=== PATIENT | female | born 1990 | race Caucasian/White ===

== ENCOUNTER 2018-09-18 17:10 | Day surgery (SDC) | payer BC, OTHER ==
[~2018-09-18] VITALS: Ht 154.9 cm; Wt 63.3 kg
[2018-09-18] MEDS: LR 1,000 ML IV SCH (01:00)
[2018-09-18 17:47] LABS: BASO # 0.1 10^3/uL (0.0-0.2); BASO % 0.3 % (0.0-1.0); EOS # 0.2 10^3/uL (0.0-0.50); HEMATOCRIT 45.8 % (36.0-47.0); HEMOGLOBIN 14.9 g/dl (12.0-15.5); LYMPH % 10.4 % (24.0-44.0); MEAN CORPUSCULAR HEMOGLOBIN 29.8 pg (27.0-33.0); MEAN CORPUSCULAR HGB CONC 32.5 g/dl (32.0-36.5); MEAN CORPUSCULAR VOLUME 91.6 fl (80.0-96.0); MONO # 1.7 10^3/uL (0.0-0.8); NEUTROPHILS # 15.2 10^3/uL (1.8-7.7); NEUTROPHILS % 78.8 % (36.0-66.0); PLATELET COUNT, AUTOMATED 242 10^3/uL (150-450); WHITE BLOOD COUNT 19.3 10^3/uL (4.0-10.0)
[2018-09-18] MEDS ORDERED: KETOROLAC 30 MG/ML VIAL (J1885) IV ONE (18:00)
[2018-09-18] MEDS ORDERED: ONDANSETRON 4MG/2ML VIAL (J2405) IV ONE (18:00)
[2018-09-18 18:15] LABS: ALT/SGPT 12 U/L (12-78); BILIRUBIN,DIRECT 0.3 MG/DL (0.0-0.2); BLOOD UREA NITROGEN 7 MG/DL (7-18); CALCIUM LEVEL 9.3 MG/DL (8.5-10.1); CARBON DIOXIDE LEVEL 29 MEQ/L (21-32); CHLORIDE LEVEL 104 MEQ/L (98-107); CREATININE FOR GFR 0.78 MG/DL (0.55-1.30); GLOMERULAR FILTRATION RATE > 60.0 (>60); GLUCOSE, FASTING 98 MG/DL (70-100); LIPASE 102 U/L (73-393); POTASSIUM SERUM 3.6 MEQ/L (3.5-5.1); SODIUM LEVEL 138 MEQ/L (136-145)
[2018-09-18 18:23] LABS: HCG, SERUM QUALITATIVE NEGATIVE (NEGATIVE)
[2018-09-18] MEDS ORDERED: ISOVUE-370 76% 100ML VIAL (Q9967) As Ordered ONE (18:26)
--- NOTE | 2018-09-18 19:28 | REPVR ---
EXAM: CT Abdomen and Pelvis With Contrast EXAM DATE/TIME: 09/18/2018 6:05 PM CLINICAL HISTORY: 28 years old, female; Abdominal pain; Other: Lower; Additional info: Lower abd pain TECHNIQUE: Imaging protocol: Axial computed tomography images of the abdomen and pelvis with intravenous contrast. Coronal and sagittal reformatted images were created and reviewed. Radiation optimization: All CT scans at this facility use at least one of these dose optimization techniques: automated exposure control; mA and/or kV adjustment per patient size (includes targeted exams where dose is matched to clinical indication); or iterative reconstruction. Contrast material: ISOVUE 370; Contrast volume: 100 ml; Contrast route: IV; COMPARISON: No relevant prior studies available. FINDINGS: Lungs: Clear lung bases. Heart: The heart is normal in size. ABDOMEN: Liver: Normal appearing liver. Gallbladder and bile ducts: The gallbladder is partially contracted. Pancreas: Normal pancreas. Spleen: Normal spleen. Adrenals: Normal adrenal glands. Kidneys and ureters: Normal kidneys. Stomach and bowel: The cecum is in the right pelvis. There is thickening of the margin of the cecum consistent with inflammation. Small amount of secretions through small bowel. Appendix: At the origin of the appendix there is a 1 CM calcified appendicolith. The appendix is severely enlarged measuring 1.6 CM in thickness. There is a small calcified appendicolith near the distal end of the appendix. The appearance is consistent with appendicitis. The appendix extends inferiorly to the mid lower pelvis. There is a small amount of fluid and inflammation in the right paracolic space extending to the region of the thickened cecum and appendix. The inflammation is most likely at the origin of the appendix. There are several moderate sized lymph nodes medial to the cecum with enhancement consistent with adenitis. PELVIS: Bladder: Unremarkable as visualized. Reproductive: In normal uterus. There are multiple follicular cysts right and left ovary the largest 1.7 CM in the right. ABDOMEN and PELVIS: Intraperitoneal space: There is no evidence of pneumoperitoneum. There is a moderate amount of free fluid within the pelvis a loculation of free fluid right posterior gutter region. Bones/joints: There is mild scoliosis of the lumbar spine. Vasculature: There is opacification of the SMA. There is opacification of the aorta and the aorta appears normal in size. Other findings: There is ossification of the SMV. IMPRESSION: 1. The cecum is in the right pelvis with thickening of the wall consistent with prominent inflammation. 2. Also a small amount of fluid and inflammation in the right paracolic space to the inferior margin of the cecum. 3. 1 cm calcified appendicolith at the origin of the appendix. The appendix is severely thickened and extending to the mid pelvis. Inflammation at the junction of the cecum with the appendix and all consistent with changes of appendicitis. 4. Approximate 8 lymph nodes 1.5 CM each with enhancement consistent with adenitis near the cecum. 5. Prominent amount of fluid in the pelvis possibly from appendicitis. Leaking of an ovarian cyst would be another consideration. Electronically signed by: Torsten Stout On 09/18/2018 19:27:44 PM
[2018-09-18] MEDS ORDERED: LIDOCAINE 2% INJ 100 MG/5 ML SDV (FOR ANES.) As Ordered ONE (20:00)
[2018-09-18] MEDS ORDERED: SUCCINYLCHOLINE 100 MG/5 ML SYRINGE (J0330) As Ordered ONE (20:00)
[2018-09-18] MEDS ORDERED: ROCURONIUM BROMIDE 50 MG/5 ML VIAL As Ordered ONE (20:00)
[2018-09-18] MEDS ORDERED: MIDAZOLAM INJ 2 MG/2 ML VIAL (J2250) As Ordered ONE (20:00)
[2018-09-18] MEDS ORDERED: fentaNYL 100 MCG/2 ML INJECTION (J3010) As Ordered ONE ×2 (20:00→21:39)
[2018-09-18] MEDS ORDERED: PROPOFOL 200 MG/20 ML VIAL As Ordered ONE (20:00)
[2018-09-18] MEDS ORDERED: PIPERACILLIN/TAZOBACTAM SOD 3.375 GM in D5W MINI-BAG PLUS 50 ML IV ONE (20:00)
[2018-09-18] MEDS ORDERED: dexameTHASONE 4 MG/ML 1ML VIAL (J1100) As Ordered ONE (20:01)
[2018-09-18] MEDS ORDERED: ONDANSETRON 4MG/2ML VIAL (J2405) As Ordered ONE (20:04)
[2018-09-18] MEDS ORDERED: GLYCOPYRROLATE INJ 0.2 MG/ML 2 ML VIAL As Ordered ONE (20:05)
[2018-09-18] MEDS ORDERED: NEOSTIGMINE 10 MG/10 ML VIAL (J2710) As Ordered ONE (20:05)
[2018-09-18] MEDS ORDERED: ONDANSETRON 4MG/2ML VIAL (J2405) IV PRN ×2 (20:30→23:30)
[2018-09-18] MEDS ORDERED: BUPIVACAINE HCL 0.25% 30 ML VIAL As Ordered ONE (20:47)
[2018-09-18] MEDS ORDERED: ACETAMINOPHEN 1000MG 100ML IV BTL (OFIRMEV) (J0131 PER 10MG) As Ordered ONE (21:42)
[2018-09-18] MEDS ORDERED: MORPHINE 10 MG/ML 1ML VIAL (J2270) IV PRN (23:30)
[2018-09-18] MEDS ORDERED: LR 1,000 ML IV SCH (23:30)
[2018-09-18] MEDS ORDERED: fentaNYL 100 MCG/2 ML INJECTION (J3010) IV PRN (23:30)
[2018-09-18] MEDS ORDERED: PERCOCET 5MG/325MG TAB PO PRN (23:30)
[2018-09-18] MEDS ORDERED: METOCLOPRAMIDE INJ 10MG/2ML VIAL (J2765) IV PRN (23:30)
[2018-09-18] MEDS ORDERED: ACETAMINOPHEN TAB 650MG DOSE (2X325MG) PO PRN (23:45)
[2018-09-19] VITALS (11 sets, daily range): BP systolic 96–120; BP diastolic 52–71
[2018-09-19] MEDS ORDERED: KETOROLAC 30 MG/ML VIAL (J1885) IV PRN
[2018-09-19] MEDS: LR 1,000 ML IV SCH (01:00)
[2018-09-19] MEDS: PIPERACILLIN/TAZOBACTAM SOD 3.375 GM in D5W MINI-BAG PLUS 50 ML IV SCH ×2 (01:40→08:03)
[2018-09-19] MEDS: MORPHINE 4 MG/ML 1ML VIAL/SYRINGE (J2270) IV PRN ×3 (01:56→11:18)
[2018-09-19] MEDS: IBUPROFEN 600 MG TAB PO PRN ×3 (08:43→23:38)
[2018-09-19] MEDS: NORCO, ANEXSIA 5/325MG TABLET (HYDROcodone/ACETAMINOPHEN) PO PRN ×3 (10:03→23:38)
[2018-09-20] VITALS: BP 107/57
[2018-09-20 04:00] VITALS: BP 116/54
[2018-09-20 08:30] VITALS: BP 123/59
[2018-09-20] MEDS: NORCO, ANEXSIA 5/325MG TABLET (HYDROcodone/ACETAMINOPHEN) PO PRN (08:48)
[2018-09-20] MEDS ORDERED: HYDR-4571 PO (11:34)
--- NOTE | 2018-09-21 07:33 | RO ---
DATE OF PROCEDURE: 09/18/2018 PREOPERATIVE DIAGNOSIS: Acute appendicitis. POSTOPERATIVE DIAGNOSIS: Acute appendicitis. PROCEDURE PERFORMED: Laparoscopic appendectomy with partial resection of cecum. SURGEON: Ken Yung MD ADVISORY APPLICATION DEVELOPER: ANESTHESIA: General. INDICATIONS FOR PROCEDURE: The patient is a 28-year-old woman who presented to the emergency department with a history of abdominal pain becoming localized in the right lower quadrant. Examination showed marked tenderness in the right lower quadrant and suprapubic area. A CT scan was consistent with acute appendicitis, but also showed some thickening of the cecal wall around the base of the appendix. She is now for a laparoscopic appendectomy. OPERATIVE PROCEDURE: The patient was brought to the operating room and placed on the table in a supine position. She was placed under general endotracheal anesthesia. The patient's abdomen was prepped and draped in a sterile fashion. 0.25% Marcaine was infiltrated at each of her trocar sites as needed. A short supraumbilical midline incision was made and deepened through the subcutaneous tissues to the fascia. The fascia was opened along the midline and the peritoneum was opened bluntly. The Armando cannula was inserted and the patient's abdomen was insufflated with carbon dioxide gas. She was tilted from a reverse Trendelenburg to a Trendelenburg position and rolled slightly to the left. A 5 mm trocar was placed in the left lower quadrant and a second 5 mm trocar was placed low in the midline. Graspers were inserted. The patient's liver appeared normal. There was a small amount of serous fluid noted in the pelvis. The cecum was identified. The terminal ileum was displaced superiorly and the inflamed appendix was identified extending inferiorly. This was grasped and elevated. A few filmy attachments around the base of the appendix were divided. There were several fronds of fatty tissue about the appendix and along the terminal ileum that were quite inflamed. Inspection revealed that there was marked inflammation, particularly at the base of the appendix and also involving the cecum around the base of the appendix. The attachments of the appendix were divided using primarily cautery dissection. Dissection proceeded to free the appendix completely down to the base. I placed an [place] 60 mm stapler with a green load across the junction of the appendix with the cecum. In this manner a portion of the inflamed cecum was also to be resected. The stapler was closed and fired. On inspecting the staple line there was a portion of the staple line, about a centimeter in length, that appeared to be questionable and as this was gently probed and inspected the demetrius appeared to be misshapen and the closure was an incomplete. There was some brownish debris noted right along this portion of the staple line. On inspecting the CT scan it appeared that her appendicolith had been located right in the orifice of the appendix and I suspect that the staple line crossed this. Some additional time was spent freeing more of the lateral aspect of the cecum to allow resection of an additional portion of the cecum to remove this inflamed area and the area of questionable staple closure. Once the dissection had been completed, another two loads of the [place] stapler were used to excise the inflamed portion of the wall of the cecum with the old staple line. This tissue and the appendix were placed in an Endopouch. The right lower quadrant paracolic gutters were all irrigated with some warm saline and inspection showed no evidence of bleeding and the staple line showed good appearance. The patient was returned to a flat position. The abdomen was deflated and the trocars were removed. The appendix and the portions of the cecum were recovered through the Treviño site. The Treviño site fascia was closed with interrupted simple sutures of #2-0 Vicryl. Skin incisions were all closed with buried #5-0 Vicryl and Steri-Strips. Light dressings were applied. The patient tolerated the procedure well without apparent complication. She was awakened in the operating room, extubated and moved to the recovery room in stable condition.
--- NOTE | 2018-09-21 07:37 | IPN ---
DATE: 09/20/2018 HISTORY: The patient is now postop day 2 from a laparoscopic appendectomy for appendicitis. She has significantly improved over the past 24 hours. Yesterday she complained of severe pain and today she reports that this is much improved. She has been tolerating some food with no nausea or vomiting. She is voiding without difficulty. She has taken a couple of [place] tablets since yesterday for discomfort. Vital signs show that she has been afebrile over the past 24 hours with a pulse in the 60s to 80s and a good blood pressure. Intake and output shows that yesterday she had 3180 in with 1100 recorded out. She has an excellent urine output recorded today. PHYSICAL EXAMINATION: The patient is sitting up in her bed looking quite comfortable. She is alert and oriented. Skin is warm and dry. Heart exam shows a regular rhythm. The lungs are clear. The abdomen is flat with active bowel sounds. Her incisions all look clean and dry. IMPRESSION: The patient is doing very well now on postop day 2 from her appendectomy. PLAN: The patient will be discharged home today. She was advised that she can take a diet as tolerated. She can shower ad wendy. She was advised to try to avoid disturbing the Steri-Strips for the first week or so. We discussed her return to work and will plan on her returning to work on September 28. If there are problems with this deadline, she should contact my office. She was otherwise provided a note to the effect that she could return to work on the . She was advised regarding some signs to look for and to contact me for any adverse events. She was advised that she should avoid any strenuous physical activity or heavy lifting for two weeks. She should follow up in my office in approximately 10-14 days for a final check. She will be provided a prescription for [place] to take on an as-needed basis for more severe pain, but will use over the counter meds as needed for lesser pain. TRISTEN
== END 2018-09-20 12:20 | disposition home or self-care (01) ==
LOC: M ED 17:10 → M SDC 20:46 → M ED 20:58 → M PED 09-19 00:30 → M SDC 09-20 12:20
PROVIDERS: ATTEND Surgery
DX: K35.890 Other acute appendicitis without perforation or gangrene (principal); Z88.8 Allergy status to other drugs, medicaments and biological substances
CPT/HCPCS: 44238; 44970; 74177; 80048; 80076; 81001; 83690; 84703; 85025; 88302; 93041; 96361; 96365; 96366; 96375; 96376; 99284; J0131; J0330; J1100; J1885; J2250; J2270; J2405; J2543; J2710; J2765; J3010; Q9967

== ENCOUNTER → 2019-03-24 | Outpatient (REF) | payer OTHER ==
[~2019-03-24] MED LIST: HYDR-4571 PO
[2019-03-24 18:28] LABS: BASO # 0.1 10^3/uL (0.0-0.2); BASO % 0.4 % (0.0-1.0); EOS # 0.2 10^3/uL (0.0-0.5); EOS % 1.3 % (0.0-3.0); HEMATOCRIT 37.2 % (36.0-47.0); HEMOGLOBIN 12.3 g/dl (12.0-15.5); LYMPH # 2.6 10^3/uL (1.5-5.0); LYMPH % 19.2 % (24.0-44.0); MEAN CORPUSCULAR HEMOGLOBIN 29.9 pg (27.0-33.0); MEAN CORPUSCULAR HGB CONC 33.1 g/dl (32.0-36.5); MEAN CORPUSCULAR VOLUME 90.5 fl (80.0-96.0); MONO % 7.7 % (0.0-5.0); NEUTROPHILS # 9.5 10^3/uL (1.5-8.5); NEUTROPHILS % 70.9 % (36.0-66.0); PLATELET COUNT, AUTOMATED 231 10^3/uL (150-450); RED BLOOD COUNT 4.11 10^6/uL (4.00-5.40); WHITE BLOOD COUNT 13.3 10^3/uL (4.0-10.0)
[2019-03-24 20:29] LABS: CHLAMYDIA DNA AMPLIFICATION POSITIVE (NEGATIVE); GC DNA AMPLIFICATION NEGATIVE (NEGATIVE)
[2019-03-26 10:38] LABS: HIV 1&2 SCREEN CENTAUR NEGATIVE (NEGATIVE); RUBELLA IgG QUALITATIVE IMMUNE (IMMUNE)
== END ==
LOC: M LABDRAW1 16:52
PROVIDERS: ATTEND Advanced Practice Midwife
DX: Z34.81 Encounter for supervision of other normal pregnancy, first trimester (principal); Z3A.00 Weeks of gestation of pregnancy not specified

== ENCOUNTER → 2019-04-28 | Outpatient (REF) | payer OTHER | LOC: M LAB REF 12:54 | PROVIDERS: ATTEND Physician Assistant | DX: J20.9 Acute bronchitis, unspecified (principal) ==

== ENCOUNTER → 2019-05-17 | Outpatient (REF) | payer OTHER ==
[2019-05-18 16:00] LABS: CHLAMYDIA DNA AMPLIFICATION NEGATIVE (NEGATIVE); GC DNA AMPLIFICATION NEGATIVE (NEGATIVE)
== END ==
LOC: M SFHCWAGY 11:39
PROVIDERS: ATTEND Obstetrics & Gynecology
DX: Z34.80 Encounter for supervision of other normal pregnancy, unspecified trimester (principal)

== ENCOUNTER → 2019-05-24 | Outpatient (CLI) | payer OTHER ==
--- NOTE | 2019-05-24 19:24 | REP ---
Clinical: Anatomical evaluation. Comparison: None . Findings: Examination demonstrates a single live intrauterine in transverse (head to maternal left) presentation. motion is identified by technologist. Placenta is noted right lateral and grade zero without evidence for placenta previa or abruption. Amniotic fluid volume is normal. Cervix measures 3.5 cm in length and appears closed. No evidence for nuchal cord. Gestational age by LMP 19 weeks 0 days with KB 10/18/2019 . Gestational age by current measurements 19 weeks 0 days with KB 10/18/2019 . FHR equals 169 beats per minute. BPD 4.4 cm 19 weeks 3 days HC 15.3 cm 18 weeks 3 days AC 13.4 cm 18 weeks 6 days FL 2.5 cm 17 weeks 4 days HL 2.5 cm 17 weeks 5 days HC/AC ratio 1.14 Estimated weight 233 grams ( 24th percentile). Anatomical assessment demonstrates normal structures including cranium, choroid plexus, cavum, cerebellum/posterior fossa, facial features, lungs, four-chamber heart/left ventricular outflow tracts, diaphragm, stomach, cord insertion/three-vessel cord, kidneys/bladder, spine, and extremities. Impression: Single live intrauterine in transverse lie demonstrating appropriate interval growth. 2. Limited evaluation of the right cardiac ventricular outflow tract. Remainder of the anatomical assessment is complete and normal.
== END ==
LOC: M WHC 14:58
PROVIDERS: ATTEND Obstetrics & Gynecology
DX: Z36.89 Encounter for other specified antenatal screening (principal); Z3A.19 19 weeks gestation of pregnancy

== ENCOUNTER → 2019-06-18 | Outpatient (CLI) | payer OTHER ==
--- NOTE | 2019-06-18 18:53 | REP ---
Click ultrasound for follow-up of anatomy: On the prior study of 05/24/2019. The cardiac left ventricular outflow tract is not optimally demonstrated because of position. At the remainder of the anatomy was unremarkable. On the study today the cardiac right ventricular outflow tract is satisfactorily demonstrated and is unremarkable. The remainder of the anatomy today is unremarkable as previously. Therefore, there are no anomalies. There is a single intrauterine gestation in oblique lie with head toward the maternal left. There is movement and cardiac activity. The heart rate is 168 beats minute. The placenta is left lateral. There is no previa or abruptio. The placenta is grade zero. The amniotic fluid volume subjectively is normal. Cervix measures 4.6 cm length. Gestational age by today's ultrasound is 22 weeks 2 days/KB 10/20/2019. Gestational age by the first ultrasound 22 weeks 4 days/KB 10/18/2019. Gestational age by LMP is 22 weeks 0 days/KB 10/22/2019. weight is 478 grams/1 pound, 0 ounces. This is the 50th percentile for 22 weeks 0 days. Electronically Signed by Dominic Calle MD 06/18/2019 06:44 P
== END ==
LOC: M RAD 16:59
PROVIDERS: ATTEND Advanced Practice Midwife
DX: Z34.02 Encounter for supervision of normal first pregnancy, second trimester (principal)

== ENCOUNTER → 2019-07-26 | Outpatient (REF) | payer OTHER ==
[2019-07-26 15:55] LABS: HEMATOCRIT 35.1 % (36.0-47.0); HEMOGLOBIN 11.6 g/dl (12.0-15.5); MEAN CORPUSCULAR VOLUME 90.7 fl (80.0-96.0); PLATELET COUNT, AUTOMATED 274 10^3/uL (150-450); RED BLOOD COUNT 3.87 10^6/uL (4.00-5.40); WHITE BLOOD COUNT 15.4 10^3/uL (4.0-10.0)
== END ==
LOC: M PLALAB 11:49
PROVIDERS: ATTEND Advanced Practice Midwife
DX: Z36.89 Encounter for other specified antenatal screening (principal)

== ENCOUNTER 2019-09-21 22:26 | Inpatient (IN) | payer OTHER ==
[~2019-09-21] VITALS: Ht 157.5 cm; Wt 75.0 kg
[2019-09-21 22:41] VITALS: BP 126/72
[2019-09-21] MEDS ORDERED: LR 1,000 ML IV SCH (23:42)
[2019-09-21] MEDS ORDERED: LACTATED RINGER'S 1000 ML IV STA (23:42)
[2019-09-21] MEDS ORDERED: ceFAZolin SOD 2 GM in IV 1 EA IV ONE (23:45)
[2019-09-21] MEDS ORDERED: AZITHROMYCIN INJ 500 MG, VIAL MATE ADAPTER 1 EACH in D5W 250 ML IV ONE (23:45)
[2019-09-21] MEDS ORDERED: BICITRA 30ML SOLN UDC PO ONE (23:45)
[2019-09-22] VITALS (8 sets, daily range): BP systolic 101–122; BP diastolic 51–69
[2019-09-22 00:25] LABS: HEMOGLOBIN 12.8 g/dl (12.0-15.5); MEAN CORPUSCULAR HGB CONC 34.6 g/dl (32.0-36.5); MEAN CORPUSCULAR VOLUME 86.9 fl (80.0-96.0); PLATELET COUNT, AUTOMATED 240 10^3/uL (150-450); RED BLOOD COUNT 4.26 10^6/uL (4.00-5.40); WHITE BLOOD COUNT 15.7 10^3/uL (4.0-10.0)
[2019-09-22] MEDS ORDERED: METOCLOPRAMIDE INJ 10MG/2ML VIAL (J2765 PER 1) IV PRN ×2 (00:52→02:00)
[2019-09-22] MEDS ORDERED: NALBUPHINE HCL 10 MG/ML AMP (J2300) IV PRN (00:52)
[2019-09-22] MEDS ORDERED: NALOXONE INJ 0.4MG/1ML VIAL (J2310 PER 1MG) IV PRN ×2 (00:52)
[2019-09-22] MEDS ORDERED: ONDANSETRON 4MG/2ML VIAL IV PRN ×2 (00:52→02:00)
[2019-09-22] MEDS ORDERED: diphenhydrAMINE 50MG/ML VIAL (J1200) IV PRN (00:52)
[2019-09-22] MEDS ORDERED: MORPHINE PRES-FREE INJ 10 MG/10 ML VIAL (J2274) As Ordered ONE (01:11)
[2019-09-22] MEDS ORDERED: OXYTOCIN INJ 10 UNITS/ML VIAL (J2590) As Ordered ONE (01:11)
[2019-09-22] MEDS ORDERED: PHENYLephrine HCL 500 MCG/5 ML (100MCG/ML) SYRINGE (J2370) As Ordered ONE (01:14)
[2019-09-22] MEDS ORDERED: FAMOTIDINE/NS 20 MG/50 ML BAG (S0028) As Ordered ONE (01:21)
[2019-09-22] MEDS ORDERED: OXYTOCIN DRIP 30 UNITS in IV 1 EA IV SCH (01:49)
[2019-09-22] MEDS ORDERED: PROMETHAZINE 25 MG TAB PO PRN (02:00)
[2019-09-22] MEDS ORDERED: PERCOCET 5MG/325MG TAB PO PRN ×3 (02:00)
[2019-09-22] MEDS ORDERED: MEASLES,MUMPS,RUBELLA VACCINE INJ (MMR-II) (90707) SC SCH (02:00)
[2019-09-22] MEDS ORDERED: ONDANSETRON 4 MG TAB PO PRN (02:00)
[2019-09-22] MEDS ORDERED: LR 1,000 ML IV SCH (02:00)
[2019-09-22] MEDS ORDERED: ACETAMINOPHEN 500 MG TAB PO PRN (02:00)
[2019-09-22] MEDS ORDERED: KETOROLAC 30 MG/ML 1ML VIAL IV PRN (02:00)
[2019-09-22] MEDS ORDERED: fentaNYL 100 MCG/2 ML INJECTION (J3010) IV PRN (02:00)
[2019-09-22] MEDS ORDERED: RHOGAM 300 MCG (1500 IU) INJ (J2790) IM SCH (02:00)
[2019-09-22] MEDS ORDERED: OXYTOCIN 30 UNITS IN 0.9% NaCl 500ML IV BAG (J2590) As Ordered ONE (02:27)
[2019-09-22] MEDS: KETOROLAC 30 MG/ML 1ML VIAL IV SCH ×3 (03:35→15:10)
[2019-09-22] MEDS ORDERED: ONDANSETRON 4MG/2ML VIAL IV ONE (06:15)
[2019-09-22] MEDS: DOCUSATE SODIUM 100 MG CAP PO SCH (09:00)
[2019-09-22] MEDS: PRENATAL VITAMINS CHEWABLE TABLET PO SCH (09:00)
[2019-09-22] MEDS: LR 1,000 ML IV SCH ×2 (09:26→09:49)
[2019-09-22] MEDS: IBUPROFEN 800 MG TAB PO SCH (23:19)
[2019-09-23 03:00] VITALS: BP 117/54
[2019-09-23 06:00] VITALS: BP 110/55
[2019-09-23 07:17] LABS: HEMATOCRIT 29.5 % (36.0-47.0); MEAN CORPUSCULAR HEMOGLOBIN 29.7 pg (27.0-33.0); MEAN CORPUSCULAR HGB CONC 33.9 g/dl (32.0-36.5); MEAN CORPUSCULAR VOLUME 87.5 fl (80.0-96.0); PLATELET COUNT, AUTOMATED 178 10^3/uL (150-450); RED BLOOD COUNT 3.37 10^6/uL (4.00-5.40); WHITE BLOOD COUNT 16.5 10^3/uL (4.0-10.0)
[2019-09-23] MEDS: DOCUSATE SODIUM 100 MG CAP PO SCH ×2 (07:44→20:31)
[2019-09-23] MEDS: IBUPROFEN 800 MG TAB PO SCH ×3 (07:44→22:58)
[2019-09-23] MEDS: PRENATAL VITAMINS CHEWABLE TABLET PO SCH (07:44)
[2019-09-23] MEDS: LR 1,000 ML IV SCH ×2 (09:49→17:49)
[2019-09-23 10:00] VITALS: BP 103/65
[2019-09-23 14:29] VITALS: BP 105/52
[2019-09-23 18:16] VITALS: BP 113/57
[2019-09-24] MEDS ORDERED: OXYC1TAB23 PO (05:38)
[2019-09-24] MEDS ORDERED: IBUP80TA PO (05:39)
[2019-09-24 06:00] VITALS: BP 109/52
[2019-09-24] MEDS: IBUPROFEN 800 MG TAB PO SCH (06:38)
[2019-09-24] MEDS: DOCUSATE SODIUM 100 MG CAP PO SCH (10:15)
[2019-09-24] MEDS: PRENATAL VITAMINS CHEWABLE TABLET PO SCH (10:15)
--- NOTE | 2019-09-25 20:43 | DSES ---
DATE OF ADMISSION: 09/21/2019 DATE OF DISCHARGE: 09/24/2019 HISTORY: A 29-year-old G1 at 35-4/7 weeks gestation presented with large gush of fluid at 2030 hours on the day of admission. Contractions began to increase. HOSPITAL COURSE: The patient was evaluated on 09/21/2019 late in the evening. She was diagnosed with ruptured membranes; however, the fetus was in the breech presentation. The patient appeared to be in early labor with minimal amniotic fluid present. The decision was made to proceed with section delivery as the safest mode. On 09/22/2019, patient underwent primary low transverse section for a 5-pound 7-ounce without complication. Her postoperative course was unremarkable. She had adequate return of bladder and bowel function. Her postoperative hemoglobin was 10.0 grams per deciliter. She was deemed stable for discharge on postoperative day #2. The baby was also stable for discharge. ADMISSION DIAGNOSIS: , 35+ weeks, breech, labor. DISCHARGE DIAGNOSIS: Delivered. PROCEDURE: Primary section. DISPOSITION: Patient will followup with Dr. Joseph in 2 weeks. Instructions were reviewed.
== END 2019-09-24 11:50 | disposition home or self-care (01) | DRG 540 ==
LOC: M LDO 22:26 → M LDI 23:32 → M PED 09-22 03:14
PROVIDERS: ADMIT Obstetrics & Gynecology; ATTEND Obstetrics & Gynecology
PROC: 10D00Z1 Extraction of Products of Conception, Low, Open Approach (ICD-10-PCS; principal; 2019-09-22 01:32)
DX: O42.013 Preterm premature rupture of membranes, onset of labor within 24 hours of rupture, third trimester (principal); O32.1XX0 Maternal care for breech presentation, not applicable or unspecified; Z3A.35 35 weeks gestation of pregnancy; Z37.0 Single live birth

== ENCOUNTER → 2021-01-10 | Outpatient (REF) | payer OTHER ==
[~2021-01-10] MED LIST changes: +IBUP80TA PO; +OXYC1TAB23 PO
[2021-01-10 19:08] LABS: GC DNA AMPLIFICATION NEGATIVE (NEGATIVE)
== END ==
LOC: M SFHCWAGY 16:48
PROVIDERS: ATTEND Obstetrics & Gynecology
DX: Z12.4 Encounter for screening for malignant neoplasm of cervix (principal); R87.610 Atypical squamous cells of undetermined significance on cytologic smear of cervix (ASC-US); Z11.3 Encounter for screening for infections with a predominantly sexual mode of transmission

== ENCOUNTER → 2021-03-06 | Outpatient (REF) | payer OTHER | LOC: M SFHCWAGY 17:09 | PROVIDERS: ATTEND Obstetrics & Gynecology | DX: R87.610 Atypical squamous cells of undetermined significance on cytologic smear of cervix (ASC-US) (principal) ==

== ENCOUNTER → 2022-01-24 | Outpatient (REF) | payer OTHER | LOC: M SFHCWAGY 09:53 | PROVIDERS: ATTEND Nurse Practitioner Family | DX: Z12.4 Encounter for screening for malignant neoplasm of cervix (principal); R87.610 Atypical squamous cells of undetermined significance on cytologic smear of cervix (ASC-US); R87.618 Other abnormal cytological findings on specimens from cervix uteri | CPT/HCPCS: 87624; G0123 ==

== ENCOUNTER 2022-08-04 20:40 | Emergency (ER) | payer OTHER ==
[~2022-08-04] VITALS: Ht 154.9 cm; Wt 69.4 kg
[2022-08-04] MEDS ORDERED: LORazepam 2 MG/ML 1ML VIAL IV STA (21:53)
[2022-08-04 22:00] LABS: BASO % 0.3 % (0.0-1.0); EOS # 0.1 10^3/uL (0.0-0.5); EOS % 0.9 % (0.0-3.0); HEMATOCRIT 41.6 % (36.0-47.0); HEMOGLOBIN 13.8 g/dl (12.0-15.5); LYMPH # 2.4 10^3/uL (1.5-5.0); LYMPH % 16.9 % (24.0-44.0); MEAN CORPUSCULAR HEMOGLOBIN 28.9 pg (27.0-33.0); MEAN CORPUSCULAR HGB CONC 33.2 g/dl (32.0-36.5); MEAN CORPUSCULAR VOLUME 87.2 fl (80.0-96.0); MONO # 1.4 10^3/uL (0.0-0.8); MONO % 9.8 % (2.0-8.0); NEUTROPHILS # 10.1 10^3/uL (1.5-8.5); NEUTROPHILS % 71.6 % (36.0-66.0); PLATELET COUNT, AUTOMATED 307 10^3/uL (150-450); RED BLOOD COUNT 4.77 10^6/uL (4.00-5.40); WHITE BLOOD COUNT 14.1 10^3/uL (4.0-10.0)
[2022-08-04 22:14] LABS: INR 0.92; PROTHROMBIN TIME 12.6 SECONDS (12.5-14.5)
[2022-08-04 22:17] LABS: D-DIMER QUANT 332.99 ng/ml (<500)
[2022-08-04 22:26] LABS: LIPASE 29 U/L (12-53)
[2022-08-04 22:29] LABS: CPK CREATINE PHOSPHOKINASE 126 U/L (34-145)
[2022-08-04 22:33] LABS: ALKALINE PHOSPHATASE 51 U/L (46-116); ALT/SGPT 15 U/L (7.0-40); AST/SGOT 15 U/L (<34); BILIRUBIN,DIRECT 0.2 MG/DL (<0.4); BILIRUBIN,TOTAL 0.6 MG/DL (0.3-1.2); BLOOD UREA NITROGEN 12 MG/DL (9-23); CALCIUM LEVEL 8.6 MG/DL (8.5-10.1); CARBON DIOXIDE LEVEL 24 MMOL/L (20-31); CHLORIDE LEVEL 105 MMOL/L (98-107); CK-MB VALUE MASS < 1.0 NG/ML (<3.6); CREATININE FOR GFR 0.77 MG/DL (0.55-1.30); GLOMERULAR FILTRATION RATE > 60.0 (>60); GLUCOSE, FASTING 102 MG/DL (60-100); MAGNESIUM LEVEL 1.6 MG/DL (1.8-2.4); MB/CK RELATIVE INDEX 0.79 (< OR =4); POTASSIUM SERUM 4.2 MMOL/L (3.5-5.1); SODIUM LEVEL 137 MMOL/L (136-145)
[2022-08-04 22:35] LABS: HCG, SERUM QUALITATIVE NEGATIVE (NEGATIVE)
[2022-08-04] MEDS ORDERED: MAG SULF 1GM/100ML (MAG RUN) 1 GM in IV 1 EA IV ONE (23:00)
[2022-08-04 23:27] LABS: CK-MB VALUE MASS < 1.0 NG/ML (<3.6)
[2022-08-04 23:28] LABS: CPK CREATINE PHOSPHOKINASE 114 U/L (34-145); MB/CK RELATIVE INDEX 0.87 (< OR =4)
[2022-08-04 23:30] VITALS: BP 129/62
== END 2022-08-05 00:17 | disposition home or self-care (01) ==
LOC: M ED 20:40 → EDBD 20:40 → M ED 08-05 00:17
DX: R00.2 Palpitations (principal); E83.42 Hypomagnesemia
CPT/HCPCS: 36415; 71045; 80048; 80076; 82550; 82553; 83690; 83735; 84443; 84484; 84703; 85025; 85379; 85610; 93005; 93041; 94760; 96365; 96375; 99285; J2060; J3475

== ENCOUNTER → 2022-09-27 | Outpatient (CLI) | payer OTHER ==
[2022-09-27 13:16] LABS: BASO % 0.3 % (0.0-1.0); EOS # 0.1 10^3/uL (0.0-0.5); EOS % 1.3 % (0.0-3.0); HEMATOCRIT 42.1 % (36.0-47.0); HEMOGLOBIN 13.8 g/dl (12.0-15.5); LYMPH # 2.3 10^3/uL (1.5-5.0); LYMPH % 21.5 % (24.0-44.0); MEAN CORPUSCULAR HGB CONC 32.8 g/dl (32.0-36.5); MEAN CORPUSCULAR VOLUME 88.4 fl (80.0-96.0); MONO # 0.8 10^3/uL (0.0-0.8); MONO % 7.9 % (2.0-8.0); NEUTROPHILS # 7.3 10^3/uL (1.5-8.5); NEUTROPHILS % 68.6 % (36.0-66.0); PLATELET COUNT, AUTOMATED 248 10^3/uL (150-450); RED BLOOD COUNT 4.76 10^6/uL (4.00-5.40); WHITE BLOOD COUNT 10.6 10^3/uL (4.0-10.0)
[2022-09-27 13:36] LABS: HEMOGLOBIN A1c 4.9 % (4.0-6.0)
[2022-09-27 13:52] LABS: FOLATE > 24.00 NG/ML (>5.4); TOTAL 25(OH) VITAMIN D 34.3 NG/ML (20.0-100.0)
[2022-09-27 13:53] LABS: ALBUMIN 3.7 G/DL (3.2-5.2); ALKALINE PHOSPHATASE 43 U/L (46-116); ALT/SGPT 13 U/L (7.0-40); AST/SGOT 14 U/L (<34); BILIRUBIN,TOTAL 0.8 MG/DL (0.3-1.2); BLOOD UREA NITROGEN 8 MG/DL (9-23); CARBON DIOXIDE LEVEL 24 MMOL/L (20-31); CHLORIDE LEVEL 105 MMOL/L (98-107); CHOLESTEROL LEVEL 141 MG/DL (<200); CHOLESTEROL RISK RATIO 2.93 (<5); CREATININE FOR GFR 0.71 MG/DL (0.55-1.30); GLOMERULAR FILTRATION RATE > 60.0 (>60); GLUCOSE, FASTING 90 MG/DL (60-100); HDL CHOLESTEROL 48.1 MG/DL (>40); LDL CHOLESTEROL 76.1 MG/DL (<100); MAGNESIUM LEVEL 1.7 MG/DL (1.8-2.4); NON-HDL-C 92.9 MG/DL; POTASSIUM SERUM 4.2 MMOL/L (3.5-5.1); SODIUM LEVEL 138 MMOL/L (136-145); TOTAL PROTEIN 6.8 G/DL (5.7-8.2); TRIGLYCERIDES LEVEL 84 MG/DL (<150); VITAMIN B12 LEVEL 326 PG/ML (211-911)
== END ==
LOC: M PLALAB 10:57
PROVIDERS: ATTEND Registered Nurse
DX: Z00.00 Encounter for general adult medical examination without abnormal findings (principal); R00.2 Palpitations

== ENCOUNTER → 2023-01-27 | Outpatient (CLI) | payer OTHER ==
[2023-01-27 14:12] LABS: HEMATOCRIT 44.2 % (36.0-47.0); HEMOGLOBIN 14.4 g/dl (12.0-15.5); MEAN CORPUSCULAR HEMOGLOBIN 28.7 pg (27.0-33.0); MEAN CORPUSCULAR HGB CONC 32.6 g/dl (32.0-36.5); MEAN CORPUSCULAR VOLUME 88.2 fl (80.0-96.0); PLATELET COUNT, AUTOMATED 288 10^3/uL (150-450); RED BLOOD COUNT 5.01 10^6/uL (4.00-5.40); WHITE BLOOD COUNT 13.1 10^3/uL (4.0-10.0)
[2023-01-27 15:06] LABS: HIV 1&2 SCREEN NEGATIVE (NEGATIVE)
[2023-01-27 15:13] LABS: HEPATITIS C VIRUS ABY INDEX 0.12 INDEX (<0.8)
[2023-01-27 15:23] LABS: GC DNA AMPLIFICATION NEGATIVE (NEGATIVE)
== END ==
LOC: M PLALAB 10:44
PROVIDERS: ATTEND Advanced Practice Midwife
DX: Z34.91 Encounter for supervision of normal pregnancy, unspecified, first trimester (principal)

== ENCOUNTER → 2023-04-03 | Outpatient (CLI) | payer OTHER | LOC: M WHC 10:35 | PROVIDERS: ATTEND Advanced Practice Midwife | DX: Z34.92 Encounter for supervision of normal pregnancy, unspecified, second trimester (principal) ==

== ENCOUNTER → 2023-07-11 | Outpatient (CLI) | payer OTHER | LOC: M WHC 07:54 | PROVIDERS: ATTEND Obstetrics & Gynecology | DX: O26.843 Uterine size-date discrepancy, third trimester (principal); Z3A.33 33 weeks gestation of pregnancy; O43.193 Other malformation of placenta, third trimester ==

== ENCOUNTER → 2023-08-01 | Outpatient (REF) | payer OTHER | LOC: M SFHCWAGY 16:43 | PROVIDERS: ATTEND Obstetrics & Gynecology | DX: O34.211 Maternal care for low transverse scar from previous cesarean delivery (principal); Z3A.00 Weeks of gestation of pregnancy not specified ==

== ENCOUNTER 2023-08-19 05:30 | Inpatient (IN) | payer OTHER ==
[~2023-08-19] VITALS: Ht 154.9 cm; Wt 73.0 kg
[2023-08-19] VITALS (9 sets, daily range): BP systolic 96–129; BP diastolic 52–83; TEMP 97.6; O2SAT 96–99
[~2023-08-19 05:30] MED LIST changes: +MAGN250T7 PO; +OMEP-173 PO; +PRENTAB53 PO
[2023-08-19] MEDS ORDERED: HOME MED LIST COMPLETE! XX SCH ×2 (06:05)
[2023-08-19] MEDS: LR 1,000 ML IV SCH ×2 (06:50→16:55)
[2023-08-19] MEDS: LR 1,000 ML IV ONE ×2 (06:50→14:06)
[2023-08-19 07:25] LABS: HEMATOCRIT 35.6 % (36.0-47.0); HEMOGLOBIN 11.5 g/dl (12.0-15.5); MEAN CORPUSCULAR HEMOGLOBIN 26.7 pg (27.0-33.0); MEAN CORPUSCULAR HGB CONC 32.3 g/dl (32.0-36.5); MEAN CORPUSCULAR VOLUME 82.6 fl (80.0-96.0); PLATELET COUNT, AUTOMATED 391 10^3/uL (150-450); RED BLOOD COUNT 4.31 10^6/uL (4.00-5.40); WHITE BLOOD COUNT 13.3 10^3/uL (4.0-10.0)
[2023-08-19] MEDS: ceFAZolin SOD 2 GM in IV 1 EA IV ONE (07:30)
[2023-08-19] MEDS: BICITRA 30ML SOLN UDC PO ONE (07:30)
[2023-08-19] MEDS ORDERED: MORPHINE PRES-FREE INJ 10 MG/10 ML VIAL As Ordered ONE (08:02)
[2023-08-19] MEDS ORDERED: fentaNYL 100 MCG/2 ML INJECTION As Ordered ONE (08:02)
[2023-08-19] MEDS ORDERED: PHENYLephrine 500MCG 5ML (100MCG/ML) SYRINGE As Ordered ONE (08:02)
[2023-08-19] MEDS ORDERED: OXYTOCIN 30UNITS IN 0.9% NaCl 500ML IV BAG As Ordered ONE (08:02)
[2023-08-19] MEDS ORDERED: ePHEDrine SULFATE 25 MG/5 ML(5MG/ML) SYRINGE As Ordered ONE (08:02)
[2023-08-19] MEDS ORDERED: ONDANSETRON 4MG 2ML VIAL As Ordered ONE (08:02)
[2023-08-19] MEDS ORDERED: METOCLOPRAMIDE INJ 10MG/2ML VIAL As Ordered ONE (08:34)
[2023-08-19] MEDS ORDERED: KETOROLAC 60MG 2ML VIAL As Ordered ONE (08:34)
[2023-08-19] MEDS ORDERED: OXYTOCIN INJ 10UNITS/ML 1ML VIAL As Ordered ONE (08:37)
[2023-08-19] MEDS ORDERED: RHOGAM 300MCG (1500IU) INJ IM SCH (08:55)
[2023-08-19] MEDS ORDERED: ONDANSETRON 4MG 2ML VIAL IV PRN ×2 (08:55→09:00)
[2023-08-19] MEDS ORDERED: PERCOCET 5MG/325MG TAB PO PRN (08:55)
[2023-08-19] MEDS ORDERED: MORPHINE 4 MG/ML 1ML VIAL IV PRN (08:55)
[2023-08-19] MEDS ORDERED: ANUSOL HC CREAM 30GM TOP PRN (08:55)
[2023-08-19] MEDS ORDERED: MEPERIDINE 25 MG/ML 1ML VIAL IV PRN (09:00)
[2023-08-19] MEDS ORDERED: **NOTE PATIENT COMMENT** MISC XX SCH (09:00)
[2023-08-19] MEDS ORDERED: oxyCODONE 5MG TAB PO PRN (09:00)
[2023-08-19] MEDS ORDERED: NALOXONE INJ 0.4MG/1ML VIAL IV PRN ×2 (09:00)
[2023-08-19] MEDS ORDERED: METOCLOPRAMIDE INJ 10MG/2ML VIAL IV PRN (09:00)
[2023-08-19] MEDS ORDERED: fentaNYL 100 MCG/2 ML INJECTION IV PRN (09:00)
[2023-08-19] MEDS ORDERED: HYDROMORPHONE HCL 0.5 MG/ 0.5 ML SYRINGE IV PRN (09:00)
[2023-08-19] MEDS: PRENATAL VITAMINS CHEWABLE TABLET PO SCH (09:00)
[2023-08-19] MEDS: DOCUSATE SODIUM 100MG CAPSULE PO SCH (09:00)
[2023-08-19] MEDS ORDERED: diphenhydrAMINE 50MG/ML VIAL IV PRN (09:00)
[2023-08-19] MEDS ORDERED: IBUP80TA PO (09:06)
[2023-08-19] MEDS ORDERED: PERCOCET PO (09:06)
[2023-08-19] MEDS ORDERED: COLA100C5 PO (09:06)
[2023-08-19] MEDS: OXYTOCIN DRIP 30 UNITS in IV 1 EA IV SCH (09:19)
[2023-08-19] MEDS ORDERED: PROMETHAZINE 25MG/ML 1ML VIAL IM PRN (11:15)
[2023-08-19] MEDS: PERCOCET 5MG/325MG TAB PO PRN (11:34)
[2023-08-19] MEDS: PROMETHAZINE 25MG/ML 1ML VIAL IV ONE (13:06)
[2023-08-19] MEDS: KETOROLAC 30 MG/ML 1ML VIAL IV SCH (15:10)
[2023-08-19] MEDS: SLF 3 ML SYR IV SCH (16:00)
[2023-08-20 02:00] VITALS: BP 98/52; O2SAT 98
[2023-08-20] MEDS: ACETAMINOPHEN 500 MG TAB PO PRN (06:00)
[2023-08-20 07:41] LABS: HEMATOCRIT 31.5 % (36.0-47.0); HEMOGLOBIN 10.4 g/dl (12.0-15.5); MEAN CORPUSCULAR HEMOGLOBIN 27.4 pg (27.0-33.0); MEAN CORPUSCULAR VOLUME 82.9 fl (80.0-96.0); PLATELET COUNT, AUTOMATED 331 10^3/uL (150-450); WHITE BLOOD COUNT 21.9 10^3/uL (4.0-10.0)
[2023-08-20 10:00] VITALS: BP 105/62; O2SAT 99
[2023-08-20] MEDS: IBUPROFEN 800 MG TAB PO SCH (12:46)
[2023-08-20 14:00] VITALS: BP 111/56; O2SAT 100
[2023-08-20 18:00] VITALS: BP 107/67; O2SAT 98
[2023-08-20 22:00] VITALS: BP 102/53; O2SAT 98
[2023-08-21 02:00] VITALS: BP 121/58; O2SAT 100
[2023-08-21 05:59] VITALS: BP 126/58; O2SAT 97
[2023-08-21] MEDS: SIMETHICONE 80MG CHEW TAB PO PRN (08:08)
[2023-08-21] MEDS: MEASLES,MUMPS,RUBELLA VACCINE INJ (MMR-II) SC.IMMUN ONE (09:27)
[2023-08-21 10:00] VITALS: BP 117/59; O2SAT 98
== END 2023-08-21 13:40 | disposition home or self-care (01) | DRG 785 ==
LOC: M LDI 05:30 → M OBS 10:36
PROVIDERS: ADMIT Obstetrics & Gynecology; ATTEND Obstetrics & Gynecology
PROC: 0UB70ZZ Excision of Bilateral Fallopian Tubes, Open Approach (ICD-10-PCS; 2023-08-19)
PROC: 10D00Z1 Extraction of Products of Conception, Low, Open Approach (ICD-10-PCS; principal; 2023-08-19 07:30)
DX: O34.211 Maternal care for low transverse scar from previous cesarean delivery (principal); Z3A.39 39 weeks gestation of pregnancy; Z37.0 Single live birth; Z30.2 Encounter for sterilization; Z79.899 Other long term (current) drug therapy; Z88.2 Allergy status to sulfonamides; Z88.8 Allergy status to other drugs, medicaments and biological substances

== ENCOUNTER → 2025-02-25 | Outpatient (CLI) | payer OTHER ==
[~2025-02-25] MED LIST changes: +COLA100C5 PO; +PERCOCET PO
[2025-02-25 11:34] LABS: BASO # 0.0 10^3/uL (0.0-0.2); BASO % 0.6 % (0.0-1.0); EOS # 0.1 10^3/uL (0.0-0.5); EOS % 1.8 % (0.0-3.0); LYMPH # 1.9 10^3/uL (1.5-5.0); LYMPH % 30.5 % (24.0-44.0); MONO # 0.7 10^3/uL (0.0-0.8); MONO % 10.8 % (2.0-8.0); NEUTROPHILS # 3.5 10^3/uL (1.5-8.5); NEUTROPHILS % 56.1 % (36.0-66.0); PLATELET COUNT, AUTOMATED 273 10^3/uL (150-450)
[2025-02-25 11:35] LABS: ALT/SGPT 16 U/L (7.0-40); AST/SGOT 18 U/L (<34); CALCIUM LEVEL 9.5 MG/DL (8.5-10.1); CARBON DIOXIDE LEVEL 26 MMOL/L (20-31); CHLORIDE LEVEL 104 MMOL/L (98-107); CHOLESTEROL LEVEL 157 MG/DL (<200); CHOLESTEROL RISK RATIO 2.69 (<5); CREATININE FOR GFR 0.75 MG/DL (0.55-1.30); GLOMERULAR FILTRATION RATE > 90.0 (>60); LDL CHOLESTEROL 86.6 MG/DL (<100); MAGNESIUM LEVEL 2.0 MG/DL (1.8-2.4); NON-HDL-C 98.8 MG/DL; POTASSIUM SERUM 4.3 MMOL/L (3.5-5.1); SODIUM LEVEL 140 MMOL/L (136-145); TRIGLYCERIDES LEVEL 61 MG/DL (<150)
[2025-02-25 11:39] LABS: FREE T4 1.35 NG/DL (0.89-1.76); THYROID PEROXIDASE ANTIBODY < 28.0 U/ML (<60.0)
[2025-02-25 11:40] LABS: TOTAL 25(OH) VITAMIN D 55.1 NG/ML (20.0-100.0)
[2025-02-25 11:44] LABS: ESTIMATED AVERAGE GLUCOSE 100.0 MG/DL (60-110)
[2025-02-25 11:59] LABS: VITAMIN B12 LEVEL 460 PG/ML (211-911)
== END ==
LOC: M PLALAB 08:13
PROVIDERS: ATTEND Registered Nurse
DX: Z00.00 Encounter for general adult medical examination without abnormal findings (principal)